=== PATIENT | female | born 1980 | race Caucasian/White ===

== ENCOUNTER 2017-06-07 16:43 | Emergency (ER) | payer MEDICAID ==
[~2017-06-07] VITALS: Ht 162.6 cm; Wt 81.7 kg
[~2017-06-07 16:43] MED LIST: AMITRIPTYLINE H10 M1 PO; BENTYL 20 MG TA20 M1 PO; HYDROCODONE-AP1 EAC6 PO; IRON; NAPROSYN500 MG PO; PHENERGAN 25 MG25 M1 PO; [UNRECOGNIZED DRUG - OTHER]; [UNRECOGNIZED DRUG - OTHER]
[2017-06-07] MEDS ORDERED: PREDNISONE 10 M10 MG PO (17:03)
[2017-06-07] MEDS ORDERED: TESSALON PERLE100 MG PO (17:03)
[2017-06-07] MEDS ORDERED: ULTRAM 50MG TAB50 MG PO (17:03)
[2017-06-07] MEDS ORDERED: ZPAK PO (17:13)
[2017-06-07] MEDS ORDERED: PROAIR HFA8.5 GM INH (17:13)
[2017-06-07] MEDS ORDERED: TRAMADOL 50 MG50 MG PO (17:13)
[2017-06-07 17:23] VITALS: BP 115/78
== END 2017-06-07 17:37 | disposition home or self-care (01) ==
LOC: M.ERS 16:43
DX: J20.9 Acute bronchitis, unspecified (principal); N30.10 Interstitial cystitis (chronic) without hematuria; F17.200 Nicotine dependence, unspecified, uncomplicated; Z90.710 Acquired absence of both cervix and uterus; Z88.5 Allergy status to narcotic agent; Z88.1 Allergy status to other antibiotic agents

== ENCOUNTER 2017-10-06 14:43 | Emergency (ER) | payer MEDICAID ==
[~2017-10-06] VITALS: Ht 162.6 cm; Wt 77.1 kg
[~2017-10-06 14:43] MED LIST changes: +PREDNISONE 10 M10 MG PO; +PROAIR HFA8.5 GM INH; +TESSALON PERLE100 MG PO; +TRAMADOL 50 MG50 MG PO; +ULTRAM 50MG TAB50 MG PO; +ZPAK PO
[2017-10-06] MEDS ORDERED: AMITRIPTYLINE100 MG PO (14:57)
[2017-10-06 15:11] LABS: URINE BLOOD NEGATIVE (Negative); URINE CLARITY CLEAR; URINE COLOR YELLOW; URINE GLUCOSE-RANDOM NEGATIVE (Negative); URINE KETONES 1+ (Negative); URINE LEUKOCYTES-REFLEX NEGATIVE (Negative); URINE NITRITE-REFLEX NEGATIVE (Negative); URINE PROTEIN NEGATIVE (Negative); URINE UROBILINOGEN 0.2 E.U./dl (0.2-1.0)
[2017-10-06 15:14] LABS: ICTOTEST (BILI CONFIRMATORY) Negative (Negative); URINE BILIRUBIN NEGATIVE (Negative)
[2017-10-06 15:16] LABS: ABSOLUTE BASOPHILS 0.1 thou/uL (0.0-0.2); ABSOLUTE EOSINOPHILS 0.2 thou/uL (0.0-0.7); ABSOLUTE LYMPHOCYTES 2.5 thou/uL (0.8-5.3); ABSOLUTE MONOCYTES 0.5 thou/uL (0.0-1.2); BASOPHILS 0.9 %; EOSINOPHILS 1.9 %; HEMATOCRIT 47.2 % (37.0-47.0); HEMOGLOBIN 16.3 gm/dL (12.0-15.0); LYMPHOCYTES 26.8 %; MCH 31.6 pg (26.0-34.0); MCHC 34.6 g/dL (28.0-37.0); MCV 91.2 fL (80.0-100.0); MONOCYTES 5.6 %; MPV 12.4 fl. (7.2-11.1); NUCLEATED RBCS 0 /100WBC; PLATELET COUNT* 153 thou/uL (150-400); POLYS 64.8 %; RBC 5.17 mil/uL (4.20-5.00); RDW-CV 13.4 % (10.5-14.5); WBC 9.2 thou/uL (4.0-11.0)
[2017-10-06 15:26] LABS: CALCIUM 8.7 mg/dL (8.5-10.1); POTASSIUM 3.6 mmol/L (3.5-5.1)
[2017-10-06 15:31] LABS: ALBUMIN 3.9 g/dL (3.4-5.0); TOTAL BILIRUBIN 0.6 mg/dL (<0.1-1.0); TOTAL PROTEIN 7.6 g/dL (6.4-8.2)
[2017-10-06] MEDS ORDERED: BACTRIM DS TAB1 EAC1 PO (15:36)
[2017-10-06] MEDS ORDERED: MUPIROCIN22 GM TOP (15:36)
[2017-10-06] MEDS ORDERED: PROMETHAZINE HC25 M1 PO (15:40)
[2017-10-06] MEDS ORDERED: ULTRAM 50MG TAB50 MG PO (15:40)
[2017-10-06 15:51] VITALS: BP 113/78
== END 2017-10-06 15:51 | disposition home or self-care (01) ==
LOC: M.ERS 14:43
PROVIDERS: Nurse Practitioner
DX: L98.8 Other specified disorders of the skin and subcutaneous tissue (principal); N30.10 Interstitial cystitis (chronic) without hematuria; F17.210 Nicotine dependence, cigarettes, uncomplicated; Z88.1 Allergy status to other antibiotic agents; Z88.5 Allergy status to narcotic agent; Z90.710 Acquired absence of both cervix and uterus

== ENCOUNTER 2018-11-19 13:37 | Emergency (ER) | payer MEDICAID ==
[~2018-11-19] VITALS: Ht 162.6 cm; Wt 65.8 kg
[~2018-11-19 13:37] MED LIST changes: +AMITRIPTYLINE100 MG PO; +BACTRIM DS TAB1 EAC1 PO; +MUPIROCIN22 GM TOP; +PROMETHAZINE HC25 M1 PO
[2018-11-19 14:07] LABS: URINE BILIRUBIN NEGATIVE (Negative); URINE BLOOD NEGATIVE (Negative); URINE CLARITY CLEAR; URINE COLOR YELLOW; URINE GLUCOSE-RANDOM NEGATIVE (Negative); URINE KETONES NEGATIVE (Negative); URINE LEUKOCYTES-REFLEX NEGATIVE (Negative); URINE NITRITE-REFLEX NEGATIVE (Negative); URINE PROTEIN NEGATIVE (Negative); URINE SPECIFIC GRAVITY <= 1.005 (1.005-1.030); URINE UROBILINOGEN 0.2 E.U./dl (0.2-1.0)
[2018-11-19 14:16] LABS: ABSOLUTE BASOPHILS 0.1 thou/uL (0.0-0.2); ABSOLUTE EOSINOPHILS 0.2 thou/uL (0.0-0.7); ABSOLUTE LYMPHOCYTES 2.4 thou/uL (0.8-5.3); ABSOLUTE MONOCYTES 0.4 thou/uL (0.0-1.2); EOSINOPHILS 2.8 %; HEMATOCRIT 42.6 % (37.0-47.0); HEMOGLOBIN 15.2 gm/dL (12.0-15.0); LYMPHOCYTES 34.3 %; MCH 32.8 pg (26.0-34.0); MCHC 35.5 g/dL (28.0-37.0); MCV 92.3 fL (80.0-100.0); MONOCYTES 5.7 %; MPV 12.2 fl. (7.2-11.1); NUCLEATED RBCS 0 /100WBC; PLATELET COUNT* 119 thou/uL (150-400); POLYS 56.2 %; RBC 4.62 mil/uL (4.20-5.00); RDW-CV 13.2 % (10.5-14.5); WBC 7.1 thou/uL (4.0-11.0)
[2018-11-19 14:57] LABS: CALCIUM 8.6 mg/dL (8.5-10.1); CREATININE 0.9 mg/dL (0.6-1.3); POTASSIUM 3.8 mmol/L (3.5-5.1)
[2018-11-19 15:01] LABS: ALBUMIN 3.7 g/dL (3.4-5.0); TOTAL BILIRUBIN 0.6 mg/dL (<0.1-1.0); TOTAL PROTEIN 6.7 g/dL (6.4-8.2)
[2018-11-19] MEDS ORDERED: NORCO 5-325 TA1 EAC1 PO (18:04)
[2018-11-19] MEDS ORDERED: ONDANSETRON HCL4 M2 PO (18:04)
[2018-11-19] MEDS ORDERED: NABUMETONE 750750 M1 PO (18:04)
[2018-11-19 18:06] VITALS: BP 91/54
== END 2018-11-19 18:06 | disposition home or self-care (01) ==
LOC: M.ERS 13:37
PROVIDERS: Nurse Practitioner Family
DX: N83.202 Unspecified ovarian cyst, left side (principal); N83.201 Unspecified ovarian cyst, right side; R19.7 Diarrhea, unspecified; N30.10 Interstitial cystitis (chronic) without hematuria; K58.9 Irritable bowel syndrome, unspecified; N80.9 Endometriosis, unspecified; F17.210 Nicotine dependence, cigarettes, uncomplicated; Z90.710 Acquired absence of both cervix and uterus; Z88.5 Allergy status to narcotic agent; Z88.1 Allergy status to other antibiotic agents

== ENCOUNTER 2019-01-19 16:59 | Emergency (ER) | payer MEDICAID ==
[~2019-01-19] VITALS: Ht 162.6 cm; Wt 70.3 kg
[~2019-01-19 16:59] MED LIST changes: +NABUMETONE 750750 M1 PO; +NORCO 5-325 TA1 EAC1 PO; +ONDANSETRON HCL4 M2 PO
[2019-01-19] MEDS ORDERED: BACTRIM DS TAB1 EACH PO (17:19)
[2019-01-19 17:36] VITALS: BP 132/78
== END 2019-01-19 17:36 | disposition home or self-care (01) ==
LOC: M.ERS 16:59
DX: L73.2 Hidradenitis suppurativa (principal); K58.9 Irritable bowel syndrome, unspecified; Z90.710 Acquired absence of both cervix and uterus; Z90.49 Acquired absence of other specified parts of digestive tract; N80.9 Endometriosis, unspecified; Z88.5 Allergy status to narcotic agent; Z88.1 Allergy status to other antibiotic agents

== ENCOUNTER 2019-02-09 13:12 | Emergency (ER) | payer MEDICAID ==
[~2019-02-09] VITALS: Ht 162.6 cm; Wt 70.3 kg
[~2019-02-09 13:12] MED LIST changes: +BACTRIM DS TAB1 EACH PO
[2019-02-09 14:26] LABS: ABSOLUTE BASOPHILS 0.1 thou/uL (0.0-0.2); ABSOLUTE EOSINOPHILS 0.3 thou/uL (0.0-0.7); ABSOLUTE MONOCYTES 0.4 thou/uL (0.0-1.2); BASOPHILS 0.8 %; EOSINOPHILS 3.3 %; HEMOGLOBIN 15.3 gm/dL (12.0-15.0); LYMPHOCYTES 26.2 %; MCH 32.2 pg (26.0-34.0); MCHC 34.8 g/dL (28.0-37.0); MCV 92.5 fL (80.0-100.0); MONOCYTES 5.4 %; MPV 11.7 fl. (7.2-11.1); NUCLEATED RBCS 0 /100WBC; PLATELET COUNT* 116 thou/uL (150-400); POLYS 64.3 %; RBC 4.76 mil/uL (4.20-5.00); RDW-CV 13.6 % (10.5-14.5); WBC 7.7 thou/uL (4.0-11.0)
[2019-02-09 14:36] LABS: CALCIUM 8.5 mg/dL (8.5-10.1); CREATININE 0.8 mg/dL (0.6-1.3); POTASSIUM 3.9 mmol/L (3.5-5.1)
[2019-02-09 14:41] LABS: ALBUMIN 3.7 g/dL (3.4-5.0); TOTAL BILIRUBIN 0.4 mg/dL (<0.1-1.0); TOTAL PROTEIN 6.9 g/dL (6.4-8.2)
[2019-02-09] MEDS ORDERED: PERCOCET 5-3251 EACH PO (16:46)
[2019-02-09 17:01] VITALS: BP 97/62
== END 2019-02-09 17:02 | disposition home or self-care (01) ==
LOC: M.ERS 13:12
PROVIDERS: Family Medicine
DX: N83.202 Unspecified ovarian cyst, left side (principal); N30.10 Interstitial cystitis (chronic) without hematuria; K58.9 Irritable bowel syndrome, unspecified; F17.210 Nicotine dependence, cigarettes, uncomplicated; Z88.1 Allergy status to other antibiotic agents; Z88.5 Allergy status to narcotic agent; Z90.710 Acquired absence of both cervix and uterus; Z90.721 Acquired absence of ovaries, unilateral

== ENCOUNTER 2019-08-24 17:12 | Emergency (ER) | payer MEDICAID ==
[~2019-08-24] VITALS: Ht 162.6 cm; Wt 70.3 kg
[~2019-08-24 17:12] MED LIST changes: +PERCOCET 5-3251 EACH PO
[2019-08-24 17:45] LABS: URINE BILIRUBIN NEGATIVE (Negative); URINE BLOOD NEGATIVE (Negative); URINE CLARITY CLEAR; URINE COLOR YELLOW; URINE GLUCOSE-RANDOM NEGATIVE (Negative); URINE KETONES NEGATIVE (Negative); URINE LEUKOCYTES-REFLEX NEGATIVE (Negative); URINE NITRITE-REFLEX NEGATIVE (Negative); URINE PROTEIN NEGATIVE (Negative); URINE SPECIFIC GRAVITY 1.015 (1.005-1.030); URINE UROBILINOGEN 0.2 E.U./dl (0.2-1.0)
[2019-08-24 17:51] LABS: ABSOLUTE EOSINOPHILS 0.3 thou/uL (0.0-0.7); ABSOLUTE MONOCYTES 0.5 thou/uL (0.0-1.2); BASOPHILS 0.7 %; EOSINOPHILS 3.9 %; HEMATOCRIT 44.3 % (37.0-47.0); HEMOGLOBIN 15.8 gm/dL (12.0-15.0); LYMPHOCYTES 29.9 %; MCH 32.9 pg (26.0-34.0); MCHC 35.7 g/dL (28.0-37.0); MCV 92.3 fL (80.0-100.0); MONOCYTES 6.7 %; MPV 11.4 fl. (7.2-11.1); NUCLEATED RBCS 0 /100WBC; PLATELET COUNT* 106 thou/uL (150-400); POLYS 58.8 %; RBC 4.81 mil/uL (4.20-5.00); RDW-CV 13.2 % (10.5-14.5); WBC 6.8 thou/uL (4.0-11.0)
[2019-08-24 18:00] LABS: CALCIUM 8.6 mg/dL (8.5-10.1); CREATININE 1.1 mg/dL (0.6-1.3); POTASSIUM 3.7 mmol/L (3.5-5.1)
[2019-08-24 18:04] LABS: ALBUMIN 4.1 g/dL (3.4-5.0); TOTAL BILIRUBIN 0.5 mg/dL (<0.1-1.0); TOTAL PROTEIN 7.4 g/dL (6.4-8.2)
[2019-08-24] MEDS ORDERED: NORCO 5-325 TA1 EAC2 PO (19:19)
[2019-08-24] MEDS ORDERED: ONDANSETRON ODT4 MG PO (19:19)
[2019-08-24 21:02] LABS: AMP/METHAMP Negative (Negative); BARBITURATES Negative (Negative); BENZODIAZEPINES POSITIVE (Negative); COCAINE Negative (Negative); METHADONE Negative (Negative); OPIATES Negative (Negative); PCP Negative (Negative); THC POSITIVE (Negative)
[2019-08-24 21:29] VITALS: BP 92/57
== END 2019-08-24 21:29 | disposition home or self-care (01) ==
LOC: M.ERS 17:12
PROVIDERS: Emergency Medicine; Physician Assistant
DX: R10.32 Left lower quadrant pain (principal); R10.31 Right lower quadrant pain; R10.84 Generalized abdominal pain; R11.2 Nausea with vomiting, unspecified; N30.10 Interstitial cystitis (chronic) without hematuria; K58.9 Irritable bowel syndrome, unspecified; N80.9 Endometriosis, unspecified; Z88.1 Allergy status to other antibiotic agents; Z88.5 Allergy status to narcotic agent; Z90.710 Acquired absence of both cervix and uterus; Z90.721 Acquired absence of ovaries, unilateral; Z79.899 Other long term (current) drug therapy

== ENCOUNTER 2020-07-04 13:36 | Emergency (ER) | payer MEDICAID ==
[~2020-07-04] VITALS: Ht 162.6 cm; Wt 65.8 kg
[~2020-07-04 13:36] MED LIST changes: +NORCO 5-325 TA1 EAC2 PO; +ONDANSETRON ODT4 MG PO
[2020-07-04 14:12] LABS: ABSOLUTE BASOPHILS 0.1 thou/uL (0.0-0.2); ABSOLUTE EOSINOPHILS 0.3 thou/uL (0.0-0.7); ABSOLUTE LYMPHOCYTES 2.4 thou/uL (0.8-5.3); ABSOLUTE MONOCYTES 0.6 thou/uL (0.0-1.2); ABSOLUTE NEUTROPHILS 5.8 thou/uL (1.6-8.1); BASOPHILS 1.1 %; EOSINOPHILS 3.6 %; HEMATOCRIT 45.3 % (37.0-47.0); HEMOGLOBIN 15.8 gm/dL (12.0-15.0); LYMPHOCYTES 26.2 %; MCH 32.3 pg (26.0-34.0); MCHC 34.8 g/dL (28.0-37.0); MCV 92.7 fL (80.0-100.0); MONOCYTES 6.5 %; MPV 11.6 fl. (7.2-11.1); NUCLEATED RBCS 0 /100WBC; PLATELET COUNT* 147 thou/uL (150-400); POLYS 62.6 %; RBC 4.89 mil/uL (4.20-5.00); RDW-CV 13.4 % (10.5-14.5); WBC 9.3 thou/uL (4.0-11.0)
[2020-07-04 14:33] LABS: CALCIUM 9.2 mg/dL (8.5-10.1); CREATININE 0.9 mg/dL (0.6-1.3); POTASSIUM 3.8 mmol/L (3.5-5.1)
[2020-07-04 14:37] LABS: ALBUMIN 4.1 g/dL (3.4-5.0); TOTAL BILIRUBIN 0.6 mg/dL (<0.1-1.0); TOTAL PROTEIN 7.5 g/dL (6.4-8.2)
[2020-07-04] MEDS ORDERED: DIAZEPAM 5 MG5 M1 PO (15:31)
[2020-07-04] MEDS ORDERED: ZOFRAN ODT4 MG DISSOLVE (15:31)
[2020-07-04 15:38] VITALS: BP 115/54
--- NOTE | 2020-07-05 13:55 | EKG ---
[place] [address] ELECTROCARDIOGRAM REPORT Name: KATELYNN STEELE Room: 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
== END 2020-07-04 15:39 | disposition home or self-care (01) ==
LOC: M.ERS 13:36
PROVIDERS: Emergency Medicine Emergency Medical Services
DX: H81.10 Benign paroxysmal vertigo, unspecified ear (principal); F41.9 Anxiety disorder, unspecified; N30.10 Interstitial cystitis (chronic) without hematuria; K58.9 Irritable bowel syndrome, unspecified; F17.210 Nicotine dependence, cigarettes, uncomplicated; N80.9 Endometriosis, unspecified; Z88.1 Allergy status to other antibiotic agents; Z88.5 Allergy status to narcotic agent; Z90.721 Acquired absence of ovaries, unilateral; Z90.710 Acquired absence of both cervix and uterus

== ENCOUNTER 2020-08-25 12:35 | Emergency (ER) | payer MEDICAID ==
[~2020-08-25] VITALS: Ht 162.6 cm; Wt 45.4 kg
[~2020-08-25 12:35] MED LIST changes: +DIAZEPAM 5 MG5 M1 PO; +ZOFRAN ODT4 MG DISSOLVE
[2020-08-25 12:41] VITALS: BP 133/90
--- NOTE | 2020-08-25 16:39 | EKG ---
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[place] : 1980 Requested By: Rasheed Hoffman Order Number: [id number] Reading MD: Sanjiv Woody Measurements Intervals [place] Rate: 76 P: 72 PA: 158 QRS: 8 QRSD: 192 T: 51 QT: 369 QTc: 415 Interpretive Statements Sinus rhythm Nonspecific intraventricular conduction delay Baseline wander in lead(s) II,III,aVF Compared to ECG 07/04/2020 13:53:29 Intraventricular conduction delay now present Electronically Signed On 08-25-2020 16:38:54 CDT by Sanjiv Woody [email or web address] <ELECTRONICALLY SIGNED> By: Sanjiv Woody MD, FACC 08/25/20 1638 1245 1245 Sanjiv Woody MD, [facility] /EPI
== END 2020-08-25 14:52 | disposition left against medical advice (07) ==
LOC: M.ERS 12:35
DX: Z53.21 Procedure and treatment not carried out due to patient leaving prior to being seen by health care provider (principal)